=== PATIENT | female | born 1990 | race Asian ===

== ENCOUNTER 2021-04-05 15:05 | Emergency (ER) | payer OTHER ==
[~2021-04-05] VITALS: Ht 162.6 cm; Wt 95.3 kg
[2021-04-05 15:09] VITALS: BP 1496/90; TEMP 97.6
== END 2021-04-05 16:43 | disposition short-term general hospital (02) ==
LOC: ED 15:05
DX: R10.84 Generalized abdominal pain (principal); Z3A.34 34 weeks gestation of pregnancy
CPT/HCPCS: 81000; 99283